=== PATIENT | female | born 1950 | race Caucasian/White ===

== ENCOUNTER 2017-08-02 17:19 | Emergency (ER) | payer MEDICARE, BC ==
[~2017-08-02] VITALS: Ht 157.5 cm; Wt 63.5 kg
[~2017-08-02 17:19] MED LIST: CITRACAL; EQL FISH OIL 1,1 CAP PO; FLUOXETINE HCL20 MG PO; KRILL OIL500 MG PO; LEXAPRO10 M2 PO; MACROBID 100 M100 M1 PO; NORVASC2.5 MG PO; PRAVACHOL10 MG PO; SIMVASTATIN20 MG PO; TOPROL XL25 MG PO; VITAMIN B12500 MCG PO; VITAMIN B6100 MG PO; VITAMIN D32000 UNI1 PO; VITAMIN D32000 UNI2 PO
[2017-08-02] MEDS ORDERED: B COMPLEX1 EAC1 PO (17:29)
[2017-08-02] MEDS ORDERED: IBUPROFEN200 M2 PO (17:30)
== END 2017-08-02 19:25 ==
LOC: EDMED 17:19
DX: S70.01XA Contusion of right hip, initial encounter (principal); S40.011A Contusion of right shoulder, initial encounter; S80.01XA Contusion of right knee, initial encounter; M19.90 Unspecified osteoarthritis, unspecified site; Z88.0 Allergy status to penicillin; W01.0XXA Fall on same level from slipping, tripping and stumbling without subsequent striking against object, initial encounter; Y92.410 Unspecified street and highway as the place of occurrence of the external cause